=== PATIENT | male | born 1960 | race Hispanic/Latino ===

== ENCOUNTER 2018-10-19 08:53 | Outpatient (CLI) | payer OTHER ==
[2018-10-19] MEDS ORDERED: ISOVUE-370 76%-LOCM 1 ML ONE (10:39)
--- NOTE | 2018-10-19 11:26 | CT ---
CT ABDOMEN AND PELVIS WITH AND WITHOUT IV CONTRAST: Date: 10-19-18 Clinical History: Hematuria. FINDINGS: Several sub 4 mm noncalcified nodular densities are seen at the lung bases, nonspecific. The visualiz ed lung bases are free of significant opacity. There is no evidence for urinary tract calculi or hydronephrosis. Simple appearing 3.4 cm right renal cyst. The kidneys demonstrate no evidence for solid mass. There is no evidence for filling defect involving the renal collecting systems, opacified ureters or urinary bladder. The liver, spleen, pancreas, and adrenal glands appear unremarkable. A splenial is seen in the spleni c hilum. No bowel dilatation, inflammatory fat stranding, free fluid or lymph node enlargement apparent. Prost ate calcifications are seen. Phleboliths are present in the pelvis. The osseous structures demonstrate no concerning osteoblastic or osteolytic lesions. IMPRESSION: An etiology for the patient's hematuria is not evident on this examination. POS: [facility]
== END 2018-10-19 08:54 | disposition home or self-care (01) ==
LOC: BICCT 08:53
PROVIDERS: ATTEND Urology
DX: R31.29 Other microscopic hematuria (principal)
CPT/HCPCS: 74178